=== PATIENT | female | born 1945 | race Caucasian/White ===

== ENCOUNTER 2018-05-10 12:16 | Inpatient (IN) ==
[2018-05-10] MEDS ORDERED: Ipratropium/Albuterol Neb 3 ML IH ONE (12:50)
[2018-05-10] MEDS ORDERED: methylPREDNISolone 125 MG/2 ML VIAL IVP ONE (12:50)
[2018-05-10 13:18] LABS: Basophils # 0.1 K/mcL (0.0-0.2); Basophils % 0.6 %; Eosinophils % 0.1 %; Hematocrit 33.6 % (35.3-44.9); Hemoglobin 10.9 g/dL (11.5-15.4); Immature Granulocytes % 0.3 % (0-4); Lymphocytes # 0.7 K/mcL (0.6-4.6); Lymphocytes % 9.4 %; Mean Corpuscular HGB Conc 32.4 g/dL (31.6-35.5); Mean Corpuscular Hemoglobin 28.8 pg (28.0-33.3); Mean Corpuscular Volume 88.9 fL (83.0-100.0); Mean Platelet Volume 10.2 fL (9.4-12.4); Monocytes # 0.6 K/mcL (0.0-1.3); Neutrophils # 6.5 K/mcL (1.6-8.9); Platelet Count 225 K/mcL (140-400); Red Blood Count 3.78 M/mcL (3.82-4.97); Segmented Neutrophils % 82.6 %
[2018-05-10 13:39] LABS: BUN/Creatinine Ratio 18 (6-26); Blood Urea Nitrogen 14 mg/dL (8-23); Calcium 7.3 mg/dL (8.6-10.3); Carbon Dioxide 20 mEq/L (23-29); Chloride 111 mEq/L (98-107); Glucose 87 mg/dL (70-105); Osmolality,Calculated 290 (280-300); Potassium 3.4 mEq/L (3.5-5.1); Sodium 140 mEq/L (136-145); Troponin I < 0.03 ng/mL (< 0.04); eGFR For Non-African Americans > 60 (> 60)
[2018-05-10 13:44] LABS: Bilirubin,Urine Negative (Negative); Blood,Urine Negative (Negative); Clarity,Urine Clear (Clear); Color,Urine Yellow (Yellow); Glucose,Urine (UA) Normal (Normal); Ketones,Urine Negative (Negative); Leukocyte Esterase,Urine Trace (Negative); Nitrite,Urine Negative (Negative); PH,Urine 6.5 pH Units (5.0-8.0); Protein,Urine Negative (Neg-Trace); Urobilinogen,Urine Normal (Normal)
[2018-05-10 13:46] LABS: Bacteria,Urine None Seen per hpf (None-Few); Hyaline Casts,Urine None Seen per lpf (None-Few); RBC,Urine 0-3 per hpf (0-3); Squamous Epithelial Cell,Urine Many per lpf (None-Few); WBC,Urine 0-3 per hpf (0-3)
--- NOTE | 2018-05-10 13:51 | Emergency Department Note ---
Disposition Clinical Impression: COPD exacerbation Atrial fibrillation Qualifiers: Atrial fibrillation type: unspecified Qualified Code(s): I48.91 - Unspecified atrial fibrillation Disposition: Admitted As Inpatient Condition: Fair Time of Disposition: 14:37 General Adult HPI - General Chief complaint: ED Arrhythmia/Palpitations Stated complaint: Abnormal EKG Time Seen by Provider: 05/10/18 12:28 Source: patient, family Mode of arrival: ambulatory Limitations: no limitations Nursing Notes Reviewed: Yes Vital Signs Reviewed: Yes - History of Present Illness HPI Narrative: Patient presents emergency room from home for evaluation of arrhythmia and shortness of breath. She called and was seen by her PCP and they are concerned about A. fib with RVR as well as COPD exacerbation. Patient denies any other symptoms or complaints. Onset (ago): day(s) Location: chest Radiation: non-radiation Pain Scale: 0 Consistency: constant Improves with: nothing Worsens with: movement Treatments Prior to Arrival: none - Related Data Home Medications Medication Instructions Recorded Confirmed Celecoxib [Celebrex] 200 mg PO DAILY 03/12/15 03/10/18 Furosemide [Lasix] 20 mg PO BID 03/12/15 03/10/18 Guaifenesin [Mucinex] 600 mg PO BID PRN 03/12/15 03/10/18 Lovastatin [Mevacor] 20 mg PO DAILY 03/12/15 03/10/18 Omeprazole [PriLOSEC] 20 mg PO DAILY 03/12/15 03/10/18 Oxygen 2 l NS HS 03/12/15 03/10/18 Sertraline [Zoloft] 100 mg PO DAILY 03/12/15 03/10/18 Albuterol Sulfate [Proair Hfa] 2 puff IH Q4HR PRN 02/13/17 03/10/18 Aspirin [Lo-Dose Aspirin EC] 81 mg PO DAILY 02/13/17 03/10/18 Diltiazem CD (24hr) [Cardizem CD] 120 mg PO DAILY 02/13/17 03/10/18 Tiotropium Br/Olodaterol HCl 2 puff IH BID 03/10/18 03/10/18 [Stiolto Respimat Inhal [place]] Previous Rx's Medication Instructions Recorded Budesonide/Formoterol 80/4.5 2 puff IH BID inhaler 03/15/18 [Symbicort 80/4.5] Warfarin [Coumadin] 2 mg PO 1800 #14 tablet 03/15/18 Potassium Chloride [K-Tab ER] 40 meq PO DAILY #10 tablet.er 05/03/18 Allergies Allergy/AdvReac Type Severity Reaction Status Date / Time acetaminophen AdvReac Vomiting Verified 02/13/17 11:20 [From Darvocet-N] propoxyphene AdvReac Vomiting Verified 02/13/17 11:20 [From Darvocet-N] All systems ED: reviewed and negative except as stated. Review of Systems: As Per HPI Constitutional: Denies: fever, chills ENT ED: Denies: ear pain Cardiovascular: Reports: palpitations, dyspnea on exertion, orthopnea. Denies: chest pain, edema Respiratory: Reports: dyspnea, wheezes. Denies: cough Gastrointestinal: Denies: abdominal pain, nausea, vomiting, diarrhea Genitourinary: Denies: urgency, dysuria, frequency Musculoskeletal: Denies: back pain, neck pain Neurological: Denies: headache Past Medical History - Past Medical History Attestation: Yes The following information was validated with the patient. Source: patient Medical history: Reports: aortic aneurysm, arthritis, cancer, COPD, hypertension Surgical history: Reports: appendectomy, breast surgery, cancer surgery, cataract, knee replacement, other Psychiatric history: Reports: depression BACK TENDER CYLINDER history: Reports: no BACK TENDER CYLINDER history - Social History Smoking Status: Former smoker Smokeless Tobacco Status: No Alcohol use: Reports: occasionally Drug use: Reports: none Physical Exam - General Limitations: no limitations General appearance: alert, in no apparent distress - Head Head exam: atraumatic, normocephalic, normal inspection - ENT ENT exam: normal exam, normal oropharynx, mucous membranes moist - Neck Neck exam: Present: normal inspection, full ROM, trachea midline. Absent: tenderness, lymphadenopathy - Chest Chest inspection: Present: normal inspection, symmetric chest wall rise. Absent: tenderness - Respiratory Respiratory exam: Present: respiratory distress, wheezes, accessory muscle use - Cardiovascular Cardiovascular exam: Present: normal rhythm, tachycardia - Abdominal Exam Abdominal exam: Present: soft, Non-Tender, normal bowel sounds. Absent: tenderness, distention, guarding, rebound, rigidity, Ingram's sign, Rovsing's sign, tenderness at McBurney's Point - Extremities Exam Extremities exam: Present: normal inspection, full ROM, normal capillary refill. Absent: tenderness - Back Exam Back exam: Present: normal inspection, full ROM. Absent: tenderness, CVA tenderness (R), CVA tenderness (L) - Neurological Exam Neurological exam: Present: alert, oriented X3, CN II-XII intact, normal gait - Skin Skin exam: Present: warm, dry, intact, normal color Course Course Narrative: patient seen and examined at the time of arrival. See history of present illness. Patient was recently diagnosed with atrial fibrillation. She is cur rently on Eliquis for anticoagulation. She is at this time denying chest pain but she has had persistently worsening shortness of breath. She typically uses 2 L of oxygen at night at home and is now to 4 L 24 hours a day. Patient has diffuse wheezing and decreased air movement throughout all lung [place]aul[place]. Her heart rate initially was between 120 and 140. The primary care provider felt the same way. Patient is denying fevers or chills. Denies any headache or vision change. She has had persistently worsening shortness of breath and no chest pain. Concern is noted for COPD exacerbation driving atrial fibrillation at this time. Patient has been taking all of her medications at home and attempting to use her breathing treatments. Patient will be given steroids and triple DuoNeb. To start with. EKG CBC chemistry troponin and BNP lactic acid will be collected and ordered. Patient will have symptomatic control provided and disposition determined. Clinical suspicion is that the patient will require admission for symptomatic control management. Otherwise she is stable. Will monitor closely and disposition will be determined - Reevaluation(s) Reevaluation #1: Patient is found to have a chronically elevated BNP. She does not show any acute fluid in the interstitial markings the lungs but does have scant bilateral pleural effusions. Breathing is much better after first dose of breathing treatments and she is diffusely wheezy now this time. Repeat dose of albuterol breathing treatments will be given. Her heart rate is been fluctuating between 92-105 bpm. Patient otherwise feels better. No other acute findings noted during this laboratory workup. Chronic anemia as well as BNP were discussed. Patient is otherwise clinically stable. The hospitalist was contacted for admission. Dr. Rios and I reviewed the case and there is no other concerns or issues at this time. She did agree with continuing to treat the bleeding related issues as opposed to treating the A. fib. Patient appears to be symptomatic atrial fibrillation secondary to COPD exacerbation. Patient does not show any clinical signs of infections antibiotics will not be started at this time. Patient is otherwise clinically stable. She will be monitored in emergency room until admission process is completed. Time: 14:13 Vital Signs Temperature 97.7 F 05/10/18 12:21 Pulse Rate 122 05/10/18 12:21 Respiratory Rate 22 05/10/18 12:21 Blood Pressure 109/75 05/10/18 12:21 O2 Sat by Pulse Oximetry 89 05/10/18 12:21 Temperature 97.7 F 05/10/18 12:21 Pulse Rate 122 05/10/18 12:21 Respiratory Rate 20 05/10/18 13:17 Blood Pressure 109/75 05/10/18 12:21 O2 Sat by Pulse Oximetry 92 05/10/18 13:17 Oxygen Delivery Oxygen Delivery Room Air Medical Decision Making - MDM Narrative Medical decision making narrative: COPD exacerbation, A. fib with RVR - Medical Records Medical records reviewed: Yes I reviewed the patient's medical records. - Lab Data Lab results reviewed: Yes I reviewed the patient's lab results. Result diagrams: 05/10/18 12:54 05/10/18 12:54 Lab Results 05/10/18 05/10/18 05/10/18 Range/Units 12:54 12:54 12:54 WBC 7.8 (4.3-11.1) K/mcL RBC 3.78 L (3.82-4.97) M/mcL Hgb 10.9 L (11.5-15.4) g/dL Hct 33.6 L (35.3-44.9) % MCV 88.9 (83.0-100.0) fL MCH 28.8 (28.0-33.3) pg MCHC 32.4 (31.6-35.5) g/dL RDW 15.0 H (11.5-14.5) % Plt Count 225 (140-400) K/mcL MPV 10.2 (9.4-12.4) fL Immature Gran % 0.3 (0-4) % Seg Neutrophils % 82.6 % Lymphocytes % 9.4 % Monocytes % 7.0 % Eosinophils % 0.1 % Basophils % 0.6 % Neutrophils # 6.5 (1.6-8.9) K/mcL Lymphocytes # 0.7 (0.6-4.6) K/mcL Monocytes # 0.6 (0.0-1.3) K/mcL Eosinophils # 0.0 (0.0-0.6) K/mcL Basophils # 0.1 (0.0-0.2) K/mcL Sodium 140 (136-145) mEq/L Potassium 3.4 L (3.5-5.1) mEq/L Chloride 111 H (98-107) mEq/L Carbon Dioxide 20 L (23-29) mEq/L BUN 14 (8-23) mg/dL Creatinine 0.79 (0.60-1.20) mg/dL Est GFR ( Amer) > 60 (> 60) Est GFR (Non-Af Amer) > 60 (> 60) BUN/Creatinine Ratio 18 (6-26) Glucose 87 (70-105) mg/dL Calculated Osmolality 290 (280-300) Calcium 7.3 L (8.6-10.3) mg/dL Troponin I < 0.03 (< 0.04) ng/mL B-Natriuretic Peptide 470 H (Less than 100) pg/mL Specimen Rejected 05/10/18 Range/Units 12:54 WBC (4.3-11.1) K/mcL RBC (3.82-4.97) M/mcL Hgb (11.5-15.4) g/dL Hct (35.3-44.9) % MCV (83.0-100.0) fL MCH (28.0-33.3) pg MCHC (31.6-35.5) g/dL RDW (11.5-14.5) % Plt Count (140-400) K/mcL MPV (9.4-12.4) fL Immature Gran % (0-4) % Seg Neutrophils % % Lymphocytes % % Monocytes % % Eosinophils % % Basophils % % Neutrophils # (1.6-8.9) K/mcL Lymphocytes # (0.6-4.6) K/mcL Monocytes # (0.0-1.3) K/mcL Eosinophils # (0.0-0.6) K/mcL Basophils # (0.0-0.2) K/mcL Sodium (136-145) mEq/L Potassium (3.5-5.1) mEq/L Chloride (98-107) mEq/L Carbon Dioxide (23-29) mEq/L BUN (8-23) mg/dL Creatinine (0.60-1.20) mg/dL Est GFR ( Amer) (> 60) Est GFR (Non-Af Amer) (> 60) BUN/Creatinine Ratio (6-26) Glucose (70-105) mg/dL Calculated Osmolality (280-300) Calcium (8.6-10.3) mg/dL Troponin I (< 0.04) ng/mL B-Natriuretic Peptide (Less than 100) pg/mL Specimen Rejected Hemolyzed - Radiology Data Radiology results reviewed: Yes I reviewed the patient's radiology results. Chest x-ray stable no acute signs of pneumonia or infection. Stable bilateral pleural effusions were noted - EKG Data EKG #1 EKG attestation: Yes I reviewed and interpreted this EKG. EKG results narrative: EKG collected. Atrial fibrillation with heart rate of 116. QRS duration of 92. QTC of 471. [place] appears to be normal. No acute signs of ST segment elevation or abnormality. Compared to previous EKG on 05/03/18 with similar rhythm.
[2018-05-10] MEDS ORDERED: Albuterol 2.5 MG/3 ML NEBULIZER IH ONE (14:05)
[2018-05-10] MEDS ORDERED: Ondansetron 4 MG/2 ML VIAL IVP PRN (14:14)
[2018-05-10] MEDS ORDERED: Naloxone 0.4 MG/ML INJ IVP PRN (14:14)
[2018-05-10 14:37] LABS: INR 2.2; Prothrombin Time 24.4 Seconds (9.4-12.1)
--- NOTE | 2018-05-10 14:38 | Internal Med History&Physical ---
Date of Encounter: 05/10/18 Time of Encounter: 14:10 Internal Medicine - H&P: HPI Chief complaint: Afib RVR, sent by PCP Admitted From: Home History of present illness: Ms. Alba is a 72 year old female with history of COPD on 2 L [facility] oxygen [facility], atrial fibrillation on Eliquis, who presented to the ED from her PCP office due to concern of COPD exacerbation and and A. fib with RVR. She states that she has been progressively dyspneic for the last week or so, associated with worsening cough and yellowish sputum production. Denies any fever/chills, chest pain, palpitation, orthopnea, or PND. No nausea/vomiting, diaphoresis, or sick contacts. Denies any abdominal pain, change in bowel habits, or dysuria. She was seen by her PCP today who noted that she was in A. fib with RVR without ventricular rate of 120 to 140s. In the ED, she was afebrile with heart rate of 122 and RR of 22. BP stable, saturating 92% on 2L O2. Workup showed normal white blood cell count, negative troponin 1, and creatinine of 0.79 which is at her baseline. Potassium was low at 3.4. Chest X-ray did not show any acute cardiopulmonary processes except for tiny bilateral pleural effusions. She was given bronchodilator in the ED with an improvement in her heart rate to 100 to 110s. Past Med Surg Social Fam HX - Past Medical History Attestation: Yes The following information was validated with the patient. Medical history: aortic aneurysm, arthritis, cancer, COPD, hypertension Additional medical history: Cancer left breast, home oxygen 2 lpm ([employer]) Psychiatric history: depression - Past Surgical History Surgical History: appendectomy, breast surgery, cancer surgery, cataract, knee replacement, other Additional surgical history: carpal tunnelx3. - Social History Smoking Status: Former smoker Smokeless Tobacco Status: No Alcohol use: occasionally Drug use: none - Family History Mother Living Status: Hx Family Cancer: Yes (Breast cancer) Father Living Status: Hx Family Respiratory Disorders: Yes (COPD) Hx Family Cancer: Yes (PROSTATE CANCER, BLACK LUNG) Internal Medicine - H&P: Meds Celecoxib [Celebrex] 200 mg PO DAILY 03/12/15 [History] Furosemide [Lasix] 20 mg PO BID 03/12/15 [History] Guaifenesin [Mucinex] 600 mg PO BID PRN 03/12/15 [History] Lovastatin [Mevacor] 20 mg PO DAILY 03/12/15 [History] Omeprazole [PriLOSEC] 20 mg PO DAILY 03/12/15 [History] Oxygen 2 l NS HS 03/12/15 [History] Sertraline [Zoloft] 100 mg PO DAILY 03/12/15 [History] Albuterol Sulfate [Proair Hfa] 2 puff IH Q4HR PRN 02/13/17 [History] Aspirin [Lo-Dose Aspirin EC] 81 mg PO DAILY 02/13/17 [History] Diltiazem CD (24hr) [Cardizem CD] 120 mg PO DAILY 02/13/17 [History] Tiotropium Br/Olodaterol HCl [Stiolto Respimat Inhal [employer] [place] [employer] [place]] 2 puff IH BID 03/10/18 [History] Budesonide/Formoterol 80/4.5 [Symbicort 80/4.5] 2 puff IH BID inhaler 03/15/18 [Rx] Warfarin [Coumadin] 2 mg PO 1800 #14 tablet 03/15/18 [Rx] Potassium Chloride [K-Tab ER] 40 meq PO DAILY #10 tablet.er 05/03/18 [Rx] Allergy/AdvReac Type Severity Reaction Status Date / Time acetaminophen AdvReac Vomiting Verified 02/13/17 11:20 [From Darvocet-N] propoxyphene AdvReac Vomiting Verified 02/13/17 11:20 [From Darvocet-N] All Systems PM: A 10-system review of systems was performed and is negative for pertinent findings except as documented above in the HPI. - Constitutional Vitals: Temp Pulse Resp BP Pulse Ox 97.7 F 122 20 109/75 92 05/10/18 12:21 05/10/18 12:21 05/10/18 13:17 05/10/18 12:21 05/10/18 13:17 Exam: General: Alert and oriented, mild respiratory distress but able to speak in full sentences HEENT:EOMI, pupils equal, round and reactive. Cardiovascular:Normal S1 & S2, No JVD. Tachycardic and irregular rhythm. Lungs: Equal and fair air entry bilaterally with diffuse wheezing Abdomen:Soft, non-tender, no rigidity. Extremities:No deformity or swelling Neurological:Normal cognition and motor skills. Non-focal Skin:Normal color, no rash, no lesions. Pulses:Carotid and radial pulses normal +2. Rest of the physical exam is non contributory Internal Med - H&P Results - Labs CBC & Chem 7: 05/10/18 12:54 05/10/18 12:54 Labs: Short CBC 05/10/18 Range/Units 12:54 WBC 7.8 (4.3-11.1) K/mcL Hgb 10.9 L (11.5-15.4) g/dL Hct 33.6 L (35.3-44.9) % Plt Count 225 (140-400) K/mcL Neutrophils # 6.5 (1.6-8.9) K/mcL BMP 05/10/18 12:54 Sodium 140 Potassium 3.4 L Chloride 111 H Carbon Dioxide 20 L BUN 14 Creatinine 0.79 Glucose 87 Calcium 7.3 L Cardiac Enzymes 05/10/18 Range/Units 12:54 Troponin I < 0.03 (< 0.04) ng/mL Urine 05/10/18 Range/Units 13:34 Urine Color Yellow (Yellow) Urine Clarity Clear (Clear) Urine pH 6.5 (5.0-8.0) pH Units Ur Specific [place] 1.010 (1.010-1.025) Urine Protein Negative (Neg-Trace) mg/dL Urine Glucose (UA) Normal (Normal) mg/dL - Impressions ITS Impressions Chest X-Ray 05/10/18 12:50 IMPRESSION: 1. Small bilateral pleural effusions. D/ / Evert Stevens MD / Evert Stevens MD Interpreting Provider: Evert Stevens MD - Assessment and Plan (1) COPD exacerbation Current Visit: Yes Status: Acute Assessment and plan: Appears that her A. fib with RVR was triggered by COPD exacerbation. Has been having difficulty in breathing, worsening cough, and increased sputum production for the last week states that she feels better after bronchodilator, HR also improved CXR negative for PNA, no fever/leukocytosis Was given IV Solu-Medrol in the ED, continue 40 mg twice a day scheduled bronchodilators, add macrolide for 5 days resume home inhalers once reconciled check respiratory viral panel (2) Atrial fibrillation with RVR Current Visit: Yes Status: Acute Assessment and plan: Likely secondary to the above, states that she is on Cardizem 360 mg QD and Eliquis 5mg BID at home. HR improved after bronchodilators, continue to tx COPD as above resume home meds once reconciled, PRN lopressor (3) Hypokalemia Current Visit: No Status: Acute Assessment and plan: 3.4 on presentation, oral supplement given in the ED will give another dose in view of afib with RVR to keep K>4 check Mg (4) Hypertension Current Visit: Yes Status: Chronic Assessment and plan: Resume home meds once reconciled Qualifiers: Hypertension type: essential hypertension Qualified Code(s): I10 - Essential (primary) hypertension (5) DVT prophylaxis Current Visit: Yes Status: Acute Assessment and plan: on Eliquis - Time Spent With Patient Total time spent is greater than 50% in coordination of care (as documented) at patient's floor/unit and/or counseling patient: 25 - 35 minutes
[2018-05-10] MEDS ORDERED: Albuterol 2.5 MG/3 ML NEBULIZER IH PRN (14:43)
[2018-05-10] MEDS: Ipratropium/Albuterol Neb 3 ML IH SCH ×2 (15:39→19:52)
[2018-05-10] MEDS: Azithromycin 500 MG in D5% in Water 250 ML IVPB SCH (17:22)
[2018-05-10] MEDS: *HR* Metoprolol 5 MG/5 ML VIAL IVP PRN (17:22)
[2018-05-10] MEDS: Apixaban 5 MG TABLET PO SCH (20:34)
[2018-05-10] MEDS: Furosemide 20 MG TABLET PO SCH (22:28)
[2018-05-11] MEDS: *HR* Metoprolol 5 MG/5 ML VIAL IVP PRN ×3 (00:07→17:23)
[2018-05-11] MEDS: Ipratropium/Albuterol Neb 3 ML IH SCH ×3 (00:13→07:20)
[2018-05-11] MEDS ORDERED: 0.9 % Sodium Chloride 250 ML ONE (01:02)
[2018-05-11 04:23] LABS: Hematocrit 30.9 % (35.3-44.9); Immature Granulocytes % 0.4 % (0-4); Lymphocytes # 0.3 K/mcL (0.6-4.6); Lymphocytes % 5.1 %; Mean Corpuscular HGB Conc 32.4 g/dL (31.6-35.5); Mean Corpuscular Hemoglobin 28.6 pg (28.0-33.3); Mean Corpuscular Volume 88.3 fL (83.0-100.0); Monocytes % 0.7 %; Neutrophils # 5.4 K/mcL (1.6-8.9); Platelet Count 196 K/mcL (140-400); Segmented Neutrophils % 93.8 %
[2018-05-11 04:34] LABS: INR 2.2; Prothrombin Time 24.3 Seconds (9.4-12.1)
[2018-05-11 04:39] LABS: BUN/Creatinine Ratio 17 (6-26); Blood Urea Nitrogen 15 mg/dL (8-23); Calcium 8.8 mg/dL (8.6-10.3); Carbon Dioxide 24 mEq/L (23-29); Chloride 102 mEq/L (98-107); Glucose 174 mg/dL (70-105); Magnesium 1.9 mg/dL (1.6-2.6); Osmolality,Calculated 287 (280-300); Potassium 3.9 mEq/L (3.5-5.1); Sodium 136 mEq/L (136-145); eGFR For Non-African Americans > 60 (> 60)
[2018-05-11] MEDS: Apixaban 5 MG TABLET PO SCH ×2 (08:13→21:41)
[2018-05-11] MEDS: MethylPREDNISolone 40 MG/ML VIAL IVP SCH ×2 (08:13→18:27)
--- NOTE | 2018-05-11 08:32 | Internal Med Progress Note ---
Hospitalist Progress Note - Encounter Date of Encounter: 05/11/18 Time of Encounter: 11:00 - Subjective Interval History: Patient with a history atrial fibrillation who presents with RVR with heart rate in the 120 to 140s. Cardiology with plans for potential cardioversion - Exam Vitals: Temp Pulse Resp BP Pulse Ox 98.1 F 133 17 113/76 95 05/11/18 06:36 05/11/18 07:10 05/11/18 06:36 05/11/18 07:10 05/11/18 06:36 Exam: Gen.: Nonacute distress, alert and oriented 3 ENT: Mucosal membranes moist Respiratory: Lungs are clear to auscultation bilaterally without any wheezing rhonchi or rales Cardiovascular: Irregular regular rhythm; no murmurs rubs or gallops Abdomen: Soft, nontender and nondistended with positive bowel sounds Extremities: No lower extremity edema Skin: Normal color - Assessment and Plan (1) Atrial fibrillation with RVR Current Visit: Yes Status: Acute Assessment and Plan: Patient with a history atrial fibrillation who presents with RVR with heart rate in the 120 to 140s. She is on Cardizem 360 mg QD and Eliquis 5mg BID at home. Cardiology with plans for potential cardioversion (2) COPD exacerbation Current Visit: Yes Status: Acute Assessment and Plan: CXR negative for PNA, no fever/leukocytosis Respiratory infectious panel pending Will continue scheduled nebs and IV Solu-Medrol (3) Hypokalemia Current Visit: No Status: Resolved Assessment and Plan: Resolved; continue to monitor with potassium supplementation as needed (4) Hypertension Current Visit: Yes Status: Chronic Assessment and Plan: Continue home medications DVT Prophylaxis: On Eliquis - Time Spent with Patient Total time spent is greater than 50% in coordination of care (as documented) at patient's floor/unit and/or counseling patient: Internal Medicine: Result - Labs CBC & Chem 7: 05/11/18 03:59 05/11/18 03:59 Labs: Short CBC 05/10/18 05/11/18 Range/Units 12:54 03:59 WBC 7.8 5.7 (4.3-11.1) K/mcL Hgb 10.9 L 10.0 L (11.5-15.4) g/dL Hct 33.6 L 30.9 L (35.3-44.9) % Plt Count 225 196 (140-400) K/mcL Neutrophils # 6.5 5.4 (1.6-8.9) K/mcL BMP 05/10/18 05/11/18 12:54 03:59 Sodium 140 136 Potassium 3.4 L 3.9 Chloride 111 H 102 Carbon Dioxide 20 L 24 BUN 14 15 Creatinine 0.79 0.88 Glucose 87 174 H Calcium 7.3 L 8.8 Cardiac Enzymes 05/10/18 Range/Units 12:54 Troponin I < 0.03 (< 0.04) ng/mL Urine 05/10/18 Range/Units 13:34 Urine Color Yellow (Yellow) Urine Clarity Clear (Clear) Urine pH 6.5 (5.0-8.0) pH Units Ur Specific [place] 1.010 (1.010-1.025) Urine Protein Negative (Neg-Trace) mg/dL Urine Glucose (UA) Normal (Normal) mg/dL - ABG Interpretation ABG results: PT/INR, D-dimer PT 24.3 Seconds (9.4-12.1) H 05/11/18 03:59 - Impressions Impressions Chest X-Ray 05/10/18 12:50 IMPRESSION: 1. Small bilateral pleural effusions. D/ / Evert Stevens MD / Evert Stevens MD Interpreting Provider: Evert Stevens MD Consult Discharge Plan - Plan Referrals: Susanna Xie, [employer] [Primary Care Provider] - (4) Hypertension Qualifiers: Hypertension type: essential hypertension Qualified Code(s): I10 - Essential (primary) hypertension
[2018-05-11] MEDS ORDERED: Celecoxib 100 MG CAPSULE PO SCH (09:00)
[2018-05-11] MEDS: Diltiazem CD (24hr) 180 MG CAPSULE PO SCH (09:33)
[2018-05-11] MEDS: Aspirin Enteric Coated 81 MG Tablet PO SCH (10:09)
--- NOTE | 2018-05-11 10:54 | Cardiology Consult Note ---
<Marisol Ochoa - Last Filed: 05/11/18 11:28> Date of Encounter: 05/11/18 Time of Encounter: 08:50 Assessment and Plan (1) Atrial fibrillation with RVR Current Visit: Yes Status: Acute Per cardiology: -Admitted with a.fib RVR, known history of a.fib. -On BB, CCB in outpatient setting. -Currently on CCB, cardizem drip. -Remains tachcycardic, average HR 134. -TTE 02/2018 with LVEF 65%, severe bi-atrial enlargement, mild TR, mild WV, mild PH, no wall motion abnormalities noted. -OF note also being treated for COPD exacerbation. -On eliquis for anticoagulation, reports no missed doses since initiation (04/05/18). -Will add back low dose BB. Continue cardizem drip. -Discussed and reviewed with , plan for DCCV in am. (2) CHF (congestive heart failure) Current Visit: No Status: Chronic Per cardiology: -Known history of diastolic CHF. -On po lasix at home. -Mildly volume overloaded on exam. -TTE as above. -Will give one time dose of IV lasix now. -Strict i/os, fluid restriction, daily weights. -CHF education reviewed. Qualifiers: Heart failure type: diastolic Heart failure chronicity: chronic Qualified Code(s): I50.32 - Chronic diastolic (congestive) heart failure (3) COPD exacerbation Current Visit: Yes Status: Acute Per cardiology: -Known COPD, being treated for COPD exacerbation. -Management per primary service. Discussion w patient/family: The assessment and plan as outlined above was discussed with the patient who expressed understanding and agreement. All questions were answered. Thank you for involving us in the care of your patient. Please call with any questions. Discussed and reviewed with History of Present Illness Consult date: 05/11/18 Requesting physician: Preston Vines Consult reason: a.fib RVR Chief complaint: weakness, shortness of breath History of present illness: Ms. Alba is a 72 year old female with a relevant past medical history of COPD, a.fib, GERD, AAA, vascular disease, depression, HLD, breast cancer s/p lumpectomy and radiation, who presented to [facility] as recommended by PCP for a.fib RVR. Patient reports since February, is unable to complete her normal tasks. States unable to do even light house work. Reports increased shortness of breath with exertion. Also reports extreme fatigue. Denies chest pain. Reports has left breast pain that has been intermittent since her lumpectomy. Past Med Surg Social Fam HX - Past Medical History Attestation: Yes The following information was validated with the patient. Source: patient, old records reviewed Medical history: aortic aneurysm, arthritis, atrial fibrillation, cancer, COPD, hypertension Additional medical history: Cancer left breast, home oxygen 2 lpm ([employer]) Psychiatric history: depression - Past Surgical History Surgical History: appendectomy, breast surgery, cancer surgery, cataract, knee replacement, other Additional surgical history: carpal tunnelx3. - Social History Smoking Status: Former smoker Smokeless Tobacco Status: No Alcohol use: occasionally Drug use: none - Family History Mother Living Status: Hx Family Cancer: Yes (Breast cancer) Father Living Status: Hx Family Respiratory Disorders: Yes (COPD) Hx Family Cancer: Yes (PROSTATE CANCER, BLACK LUNG) Medications and Allergies Celecoxib [Celebrex] 200 mg PO BID 03/12/15 [History] Furosemide [Lasix] 60 mg PO QAM 03/12/15 [History] Lovastatin [Mevacor] 20 mg PO DAILY 03/12/15 [History] Omeprazole [PriLOSEC] 20 mg PO DAILY 03/12/15 [History] Sertraline [Zoloft] 100 mg PO DAILY 03/12/15 [History] Albuterol Sulfate [Proair Hfa] 2 puff IH Q4HR PRN 02/13/17 [History] Aspirin [Lo-Dose Aspirin EC] 81 mg PO DAILY 02/13/17 [History] Diltiazem CD (24hr) [Cardizem CD] 360 mg PO DAILY 02/13/17 [History] Tiotropium Br/Olodaterol HCl [Stiolto Respimat Inhal [place]] 2 puff IH BID 03/10/18 [History] Furosemide [Lasix] 40 mg PO HS 05/10/18 [History] Metoprolol [Lopressor] 50 mg PO BID 05/10/18 [History] Cholecalciferol (D-3) [Vitamin D] 1,000 unit PO DAILY 05/11/18 [History] Fluticasone Propionate [Flovent Hfa] 1 puff IH BID 05/11/18 [History] Allergy/AdvReac Type Severity Reaction Status Date / Time acetaminophen AdvReac Vomiting Verified 02/13/17 11:20 [From Darvocet-N] propoxyphene AdvReac Vomiting Verified 02/13/17 11:20 [From Darvocet-N] All Systems Review: The remainder of the systems were reviewed and are negative - Constitutional Constitutional: fatigue, weakness - Cardiovascular Cardiovascular: dyspnea on exertion, rapid heart rate Physical Examination Vital Signs, Last 4 Hours Pulse Resp BP Pulse Ox 05/11/18 07:20 18 95 05/11/18 07:10 133 113/76 General: Conversant, No Apparent Distress HEENT: Atraumatic, Normocephaly, Mucus Membranes Moist Neck: No JVD, Normal carotid pulses Cardiac: Normal S1 and S2, No Murmur, Other (Irregularly irregular, tachycardic. ) Lungs: Normal Breath Sounds, No Wheeze, Rales, Rhonchi Neuro: Alert and responsive, No focal deficits noted Abdomen: Soft, Non-Tender Skin: No rashes noted on visualized skin Musculoskeletal: No Chest Wall Tenderness Extremities: No Clubbing, No Cyanosis, Normal Pulses, Other (Moderate bilateral lower extremity edema noted, non-pitting. ) Results 05/11/18 03:59 05/11/18 03:59 Lab Results Impressions Active Medications Apixaban (Eliquis) 5 mg PO BID LESLYE Stop: 11/09/18 21:01 Last Admin: 05/11/18 08:13 Dose: 5 mg Aspirin (Aspirin Ec) 81 mg PO DAILY LESLYE Stop: 11/10/18 09:01 Last Admin: 05/11/18 10:09 Dose: 81 mg Celecoxib (Celebrex) 200 mg PO BID LESLYE Stop: 11/10/18 09:01 Last Admin: 05/11/18 10:11 Dose: Not Given Diltiazem HCl (Cardizem Cd) 360 mg PO DAILY LESLYE Stop: 11/10/18 09:01 Last Admin: 05/11/18 09:33 Dose: Not Given Furosemide (Lasix) 40 mg PO HS LESLYE Stop: 11/09/18 21:16 Last Admin: 05/10/18 22:28 Dose: 40 mg Azithromycin 500 mg/ Dextrose 250 mls @ 252 mls/hr IVPB Q24H LESLYE Stop: 11/09/18 15:01 Last Infusion: 05/10/18 18:30 Dose: Infused Diltiazem HCl 50 mg/ Sodium (Chloride) 50 mls @ 5 mls/hr IVC .Q10H LESLYE; Protocol Stop: 11/09/18 18:46 Last Admin: 05/11/18 09:32 Dose: 20 mg/hr, 20 mls/hr Ipratropium Fonda (Atrovent Neb) 0.5 mg IH [id number] PRN PRN Reason: Dyspnea Stop: 05/16/18 10:20 Lovastatin (Mevacor) 20 mg PO QPM LESLYE Stop: 11/10/18 18:01 Methylprednisolone (Solu-Medrol) 40 mg IVP Q12HR LESLYE Stop: 11/10/18 08:01 Last Admin: 05/11/18 08:13 Dose: 40 mg Metoprolol Tartrate (Lopressor) 2.5 mg IVP Q6HR PRN PRN Reason: Tachyarrhythmias Stop: 11/09/18 14:45 Last Admin: 05/11/18 10:24 Dose: 2.5 mg Metoprolol Tartrate (Lopressor) 25 mg PO BID LESLYE Stop: 11/10/18 10:31 Naloxone HCl (Narcan) 0.4 mg IVP Q2M PRN PRN Reason: SEE COMMENTS Stop: 11/09/18 14:15 Omeprazole (Prilosec) 20 mg PO DAILY [facility]; Protocol Stop: 11/10/18 09:01 Last Admin: 05/11/18 10:10 Dose: 20 mg Ondansetron HCl (Zofran) 4 mg IVP Q8HR PRN PRN Reason: Nausea And Vomiting Stop: 11/09/18 14:15 Sertraline HCl (Zoloft) 100 mg PO DAILY [facility] Stop: 11/10/18 09:01 Last Admin: 05/11/18 10:09 Dose: 100 mg Chest X-Ray 05/10/18 12:50 IMPRESSION: 1. Small bilateral pleural effusions. D/ / Evert Stevens MD / Evert Stevens MD Interpreting Provider: Evert Stevnes MD Laboratory Tests 05/10/18 05/10/18 05/11/18 12:54 12:54 03:59 Hgb 10.0 L Potassium Creatinine Magnesium Troponin I < 0.03 B-Natriuretic Peptide 470 H 05/11/18 03:59 Hgb Potassium 3.9 Creatinine 0.88 Magnesium 1.9 Troponin I B-Natriuretic Peptide - Imaging and Cardiology Chest Xray: report reviewed Echo: report reviewed - EKG Interpretation EKG results cardiology: personally reviewed (ECG with a.fib RVR, HR 116.), other (Telemetry reviewed with average HR previous 12 hours noted to be 134, a.fib RVR. PVCs noted.) Consult Discharge Plan - Plan Referrals: Susanna Xie, INDUSTRIAL AERIAL INSTALLER [Primary Care Provider] - <Dante Milner - Last Filed: 05/12/18 09:08> Date of Encounter: 05/12/18 - Attending Attestation I have personally performed a face to face evaluation on this patient. I have reviewed and agree with the documented findings and care plan as documented by the INDUSTRIAL AERIAL INSTALLER. History and Exam by me shows: 72-year-old pleasant female admitted for A. fib with RVR, COPD exacerbation. She has been refractory to multiple rate control medications as outpatient. She is on Eliquis 5 mg twice a day for the past 1 month and denies missing any doses. Echocardiogram shows preserved ejection fraction with biatrial enlarg ement. Recommend cardioversion today. Continue Cardizem. Continue Eliquis 5 mg twice a day. Continue Lasix for chronic diastolic heart failure. Avoid B agonists. Recommend pulmonary consultation for alternative bronchodilators. Thanks, Dante Milner MD [facility] Assessment and Plan Discussion w patient/family: The assessment and plan as outlined above was discussed with the patient and/or family members who expressed understanding and agreement. All questions were answered. Thank you for involving us in the care of your patient. Please call with any questions. History of Present Illness History of present illness: Ms. Alba is a 72 year old female All Systems Review: The remainder of the systems were reviewed and are negative Physical Examination Vital Signs, Last 4 Hours Temp Pulse Resp BP Pulse Ox 05/12/18 06:55 98.0 F 103 14 110/62 93 Results 05/11/18 03:59 05/11/18 03:59
[2018-05-11] MEDS ORDERED: Furosemide 40 MG/4 ML VIAL IVP ONE (11:29)
[2018-05-11] MEDS ORDERED: Acetaminophen 325 MG TABLET PO PRN (11:37)
--- NOTE | 2018-05-11 16:11 | Electrocardiograph Report ---
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
[2018-05-11] MEDS: Azithromycin 500 MG in D5% in Water 250 ML IVPB SCH (16:37)
[2018-05-11 16:47] LABS: Adenovirus Not Detected (Not Detect); Bordetella Pertussis Not Detected (Not Detect); Chlamydophila pneumoniae Not Detected (Not Detect); Coronavirus 229E Not Detected (Not Detect); Coronavirus HKU1 Not Detected (Not Detect); Coronavirus NL63 Not Detected (Not Detect); Coronavirus OC43 Not Detected (Not Detect); Human Metapneumovirus Not Detected (Not Detect); Human Rhinovirus/Enterovirus Not Detected (Not Detect); Influenza A Subtype 2009 H1 Not Detected (Not Detect); Influenza A Untypeable Not Detected (Not Detect); Influenza B Not Detected (Not Detect); Mycoplasma pneumoniae Not Detected (Not Detect); Parainfluenza Virus 1 Not Detected (Not Detect); Parainfluenza Virus 2 Not Detected (Not Detect); Parainfluenza Virus 3 Not Detected (Not Detect); Parainfluenza Virus 4 Not Detected (Not Detect); Respiratory Syncytial Virus Not Detected (Not Detect)
[2018-05-11] MEDS: Ipratropium Neb 0.5 MG NEBULIZER IH PRN (18:17)
[2018-05-11] MEDS: Furosemide 20 MG TABLET PO SCH (21:41)
[2018-05-12] MEDS: Ipratropium Neb 0.5 MG NEBULIZER IH PRN ×2 (02:36→09:38)
[2018-05-12] MEDS: MethylPREDNISolone 40 MG/ML VIAL IVP SCH ×2 (05:25→17:05)
[2018-05-12] MEDS: Apixaban 5 MG TABLET PO SCH ×2 (08:35→20:22)
[2018-05-12] MEDS: Aspirin Enteric Coated 81 MG Tablet PO SCH (08:35)
[2018-05-12] MEDS: Diltiazem CD (24hr) 180 MG CAPSULE PO SCH (09:49)
[2018-05-12 09:52] LABS: Basophils % 0.1 %; Hematocrit 30.8 % (35.3-44.9); Hemoglobin 10.3 g/dL (11.5-15.4); Immature Granulocytes % 0.6 % (0-4); Lymphocytes # 0.5 K/mcL (0.6-4.6); Lymphocytes % 4.1 %; Mean Corpuscular HGB Conc 33.4 g/dL (31.6-35.5); Mean Corpuscular Volume 86.8 fL (83.0-100.0); Monocytes # 0.2 K/mcL (0.0-1.3); Monocytes % 1.6 %; Neutrophils # 11.9 K/mcL (1.6-8.9); Platelet Count 231 K/mcL (140-400); Red Blood Count 3.55 M/mcL (3.82-4.97); Red Cell Distribution Width 15.4 % (11.5-14.5); Segmented Neutrophils % 93.6 %
[2018-05-12 10:12] LABS: BUN/Creatinine Ratio 26 (6-26); Blood Urea Nitrogen 25 mg/dL (8-23); Calcium 8.9 mg/dL (8.6-10.3); Carbon Dioxide 24 mEq/L (23-29); Chloride 99 mEq/L (98-107); Glucose 147 mg/dL (70-105); Osmolality,Calculated 287 (280-300); Potassium 3.9 mEq/L (3.5-5.1); Sodium 135 mEq/L (136-145); eGFR For Non-African Americans 57 (> 60)
[2018-05-12] MEDS ORDERED: Lidocaine Viscous Oral Soln 15 ML SOLUTION MM PRN (10:17)
[2018-05-12] MEDS ORDERED: 0.9 % Sodium Chloride 500 ML IVC ONE (10:18)
[2018-05-12] MEDS ORDERED: Tetracaine/Benzocaine/Butamben 1 SPRAY AEROSOL MM ONE (10:18)
--- NOTE | 2018-05-12 10:22 | Event Note ---
Date of Encounter: 05/12/18 Time of Encounter: 08:00 - Cardiology Event Note PLan for ALYSSA guided DCCV today. Risks versus benefits of ALYSSA/DCCV explained to patient and family, who state understanding. Patient agreeable to proceed. Discussed and reviewed with . Further recommendations pending ALYSSA/DCCV.
[2018-05-12] MEDS: *HR* Midazolam HCl 5 MG/5 ML VIAL IVP PRN ×2 (11:25→11:49)
[2018-05-12] MEDS: *HR* FentaNYL (PF) 100 MCG/2 ML VIAL IVP PRN ×2 (11:25→11:49)
--- NOTE | 2018-05-12 14:34 | Event Note ---
Date of Encounter: 05/12/18 Time of Encounter: 14:32 - Cardiology Event Note Patient is s/p ALYSSA/DCCV. Currently SR, HRs 60-70s. Discussed and reviewed with , will decrease cardizem CD to 120mg daily. On lopressor 25mg BID. Continue eliquis for anticoagulation. Cardiology will sign off, will arrange outpatient follow up.
[2018-05-12] MEDS: Ipratropium/Albuterol Neb 3 ML IH SCH ×3 (15:24→23:22)
[2018-05-12] MEDS: Azithromycin 500 MG in D5% in Water 250 ML IVPB SCH (15:29)
--- NOTE | 2018-05-12 19:50 | Internal Med Progress Note ---
Hospitalist Progress Note - Encounter Date of Encounter: 05/12/18 Time of Encounter: 11:00 - Subjective Interval History: Recent went today for DCCV for successful and patient now and regular rhythm and Cardizem drip weaned off. Patient still with diffuse expiratory wheezes for COPD exacerbation therefore we will continue IV Solu-Medrol in addition to starting scheduled DuoNeb's. - Exam Vitals: Temp Pulse Resp BP Pulse Ox 98.4 F 73 18 116/85 94 05/12/18 19:30 05/12/18 19:30 05/12/18 19:30 05/12/18 19:30 05/12/18 19:30 Exam: Gen.: Nonacute distress, alert and oriented 3 ENT: Mucosal membranes moist Respiratory: Bilateral expiratory wheezes Cardiovascular: Irregular regular rhythm; no murmurs rubs or gallops Abdomen: Soft, nontender and nondistended with positive bowel sounds Extremities: No lower extremity edema Skin: Normal color - Assessment and Plan (1) Atrial fibrillation with RVR Current Visit: Yes Status: Acute Assessment and Plan: Patient is s/p ALYSSA/DCCV. Currently SR, HRs 60-70s. Recommendations to decrease oral dose of Cardizem CD to 120 mg daily and continue Lopressor 25 mg twice daily She will also continue Eliquis for oral anticoagulation follow-up with cardiology as an outpatient. (2) COPD exacerbation Current Visit: Yes Status: Acute Assessment and Plan: Patient still with diffuse expiratory wheezes for COPD exacerbation therefore we will continue IV Solu-Medrol in addition to starting scheduled DuoNeb's. (3) Hypokalemia Current Visit: No Status: Inactive Assessment and Plan: Resolved; continue to monitor with potassium supplementation as needed (4) Hypertension Current Visit: Yes Status: Chronic Assessment and Plan: Continue home medications DVT Prophylaxis: On Eliquis - Time Spent with Patient Total time spent is greater than 50% in coordination of care (as documented) at patient's floor/unit and/or counseling patient: Internal Medicine: Result - Labs CBC & Chem 7: 05/12/18 09:24 05/12/18 09:24 Labs: Short CBC 05/12/18 Range/Units 09:24 WBC 12.7 H D (4.3-11.1) K/mcL Hgb 10.3 L (11.5-15.4) g/dL Hct 30.8 L (35.3-44.9) % Plt Count 231 (140-400) K/mcL Neutrophils # 11.9 H (1.6-8.9) K/mcL BMP 05/12/18 09:24 Sodium 135 L Potassium 3.9 Chloride 99 Carbon Dioxide 24 BUN 25 H Creatinine 0.96 Glucose 147 H Calcium 8.9 - ABG Interpretation ABG results: PT/INR, D-dimer PT 24.3 Seconds (9.4-12.1) H 05/11/18 03:59 - Impressions Impressions Transesophageal w/Cardioversion 05/12/18 09:18 Impressions: No thrombus in LA or HOPE. Successful synchronized direct current cardioversion of atrial fibrillation. LVEF 50% Low normal RV systolic function. Moderately dilated LA, severely dilated RA. Mild tricuspid regurgitation. No pulmonary hypertension. Mil ascending aorta dilatation. Left Ventricular Wall Motion: Transesophageal Echo Findings All wall segments showed normal motion. Medication Given: Time Medication Dose Units Route 11:25 Versed 2 mg IV 11:25 Fentanyl 50 mcg IV 11:49 Versed 2 mg IV 11:49 Fentanyl 50 mcg IV Contrast Type Amount Agitated saline 10 Findings: Study Quality * Technically adequate exam. ECG Findings * Atrial fib RVR Left Ventricle * LVEF 50% * Normal size and low normal systolic function. Right Ventricle * The right ventricle was normal in size. * Low normal global systolic function. Left Atrium * Moderately dilated. * No thrombus present. * No thrombus is visualized in the LA appendage. * The LA appendage flow velocity is reduced. Right Atrium * RA is Severely dilated. Interatrial Septum * No evidence of inter-atrial shunting noted with saline contrast. Aortic Valve * Normal structure and function. Mitral Valve * Normal structure and function * No mitral stenosis. * Trace/trivial mitral regurgitation. Tricuspid Valve * Normal structure. * mild tricuspid regurgitation. * No pulmonary hypertension. Pulmonic Valve * Normal structure. * trivial pulmonic regurgitation. Aorta * Ascending aorta is dilated, mild, 3.7 cm. Pericardium * No pericardial effusion. Pulmonary Artery * Normal pulmonary artery. Pulmonary Veins * Normal pulmonary veins. Procedure Summary: After explaining the risks, benefits, and alternatives of the procedure to the patient in detail and answering all questions to satisfaction, an informed consent was obtained in writing. The patient was NPO for the six hours prior to the procedure. The patient denied dysphagia, odynophagia, and loose teeth. The patient was monitored with periodic automated blood pressures and continuous pulse oximetry and telemetry. Continuous oxygen was administered by ME. The patient was placed in the full upright position and the posterior oropharynx was anesthetized as above and complete suppression of the gag reflex was obtained. The patient was then placed in the left lateral decubitus position, the neck was flexed, and a bite block was placed in the patient's mouth. IV sedation was administered. Once adequate sedation was achieved, a well-lubricated anteflexed multipoint intraesophageal echocardiographic probe was inserted into the midline posterior oropharynx. Gentle pressure was applied as the patient swallowed and the esophagus was intubated without difficulty. The scope was advanced to the mid esophagus without encountering resistance. Images were obtained from the mid and upper esophagus. Images from the gastric globe were obtained. The intra-atrial septum was assessed by color-flow Doppler and agitated saline. The scope was then rotated approximately 180 degrees and withdrawn, visualizing the length of the aorta. The scope was then slowly withdrawn as the patient was continually suctioned. The patient tolerated the procedure well. Following informed consent , the patient was sedated with fentanyl and versed. After adequate sedation was achieved, cardioversion in the AP approach was successful using 200 Joules of biphasic energy. Sinus rhythm was restored after 1 attempt(s), sinus bradycardia with PACs. The patient was monitored for the standard 30 minutes post procedure. Complications: None History: Hypertension Hypercholesteremia Years 44 Packs 1.5 Congestive Heart Failure Previous Echo 03/10/2018 BP 113 / 74 Updated by Joesph Herrera MD on 05/12/2018 12:48:01 PM electronically signed on 05/12/2018 12:51:42 PM with status of Final Wall Motion Menard: 1=Normal, 2=Hypokinesis, 3=Akinesis, 4=Dyskinesis, 5=Aneurysmal, 6=Hyperkinetic, X=Not Visualized (Blank)=Missing Wall MotionIndex ALYSSA Total of all scored beaulieu 17 Index Divided by ---- = 1 Total number of beaulieu scored 17 ADDENDUM: 05/12/18 7718 Impressions: No thrombus in LA or HOPE. Successful synchronized direct current cardioversion of atrial fibrillation. LVEF 50% Low normal RV systolic function. Moderately dilated LA, severely dilated RA. Mild tricuspid regurgitation. No pulmonary hypertension. Mild ascending aorta dilatation. Left Ventricular Wall Motion: Transesophageal Echo Findings All wall segments showed normal motion. Medication Given: Time Medication Dose Units Route 11:25 Versed 2 mg IV 11:25 Fentanyl 50 mcg IV 11:49 Versed 2 mg IV 11:49 Fentanyl 50 mcg IV Contrast Type Amount Agitated saline 10 Findings: Study Quality * Technically adequate exam. ECG Findings * Atrial fib RVR Left Ventricle * LVEF 50% * Normal size and low normal systolic function. Right Ventricle * Low normal global systolic function. * The right ventricle was normal in size. Left Atrium * Moderately dilated. * No thrombus present. * No thrombus is visualized in the LA appendage. * The LA appendage flow velocity is reduced. Right Atrium * RA is Severely dilated. Interatrial Septum * No evidence of inter-atrial shunting noted with saline contrast. Aortic Valve * Normal structure and function. Mitral Valve * Normal structure and function * No mitral stenosis. * Trace/trivial mitral regurgitation. Tricuspid Valve * Normal structure. * mild tricuspid regurgitation. * No pulmonary hypertension. Pulmonic Valve * Normal structure. * trivial pulmonic regurgitation. Aorta * Ascending aorta is dilated, mild, 3.7 cm. * There is scattered layerered plaques in the descending and transverse aorta which measures <[id number]. Pericardium * No pericardial effusion. Pulmonary Artery * Normal pulmonary artery. Pulmonary Veins * Normal pulmonary veins. Procedure Summary: After explaining the risks, benefits, and alternatives of the procedure to the patient in detail and answering all questions to satisfaction, an informed consent was obtained in writing. The patient was NPO for the six hours prior to the procedure. The patient denied dysphagia, odynophagia, and loose teeth. The patient was monitored with periodic automated blood pressures and continuous pulse oximetry and telemetry. Continuous oxygen was administered by ME. The patient was placed in the full upright position and the posterior oropharynx was anesthetized as above and complete suppression of the gag reflex was obtained. The patient was then placed in the left lateral decubitus position, the neck was flexed, and a bite block was placed in the patient's mouth. IV sedation was administered. Once adequate sedation was achieved, a well-lubricated anteflexed multipoint intraesophageal echocardiographic probe was inserted into the midline posterior oropharynx. Gentle pressure was applied as the patient swallowed and the esophagus was intubated without difficulty. The scope was advanced to the mid esophagus without encountering resistance. Images were obtained from the mid and upper esophagus. Images from the gastric globe were obtained. The intra-atrial septum was assessed by color-flow Doppler and agitated saline. The scope was then rotated approximately 180 degrees and withdrawn, visualizing the length of the aorta. The scope was then slowly withdrawn as the patient was continually suctioned. The patient tolerated the procedure well. Following informed consent , the patient was sedated with fentanyl and versed. After adequate sedation was achieved, cardioversion in the AP approach was successful using 200 Joules of biphasic energy. Sinus rhythm was restored after 1 attempt(s), sinus bradycardia with PACs. The patient was monitored for the standard 30 minutes post procedure. Complications: None History: Hypertension Hypercholesteremia Years 44 Packs 1.5 Congestive Heart Failure Previous Echo 03/10/2018 BP 113 / 74 Updated by Joesph Herrera MD on 05/12/2018 3:57:38 PM electronically signed on 05/12/2018 4:00:06 PM with status of Final Wall Motion Menard: 1=Normal, 2=Hypokinesis, 3=Akinesis, 4=Dyskinesis, 5=Aneurysmal, 6=Hyperkinetic, X=Not Visualized (Blank)=Missing Wall MotionIndex ALYSSA Total of all scored beaulieu 17 Index Divided by ---- = 1 Total number of beaulieu scored 17 Consult Discharge Plan - Plan Referrals: Susanna Xie, STAGE SETTING PAINTER APPRENTICE [Primary Care Provider] - (4) Hypertension Qualifiers: Hypertension type: essential hypertension Qualified Code(s): I10 - Essential (primary) hypertension
[2018-05-12] MEDS: Furosemide 20 MG TABLET PO SCH (20:23)
[2018-05-13] MEDS: Ipratropium/Albuterol Neb 3 ML IH SCH ×2 (03:52→07:12)
[2018-05-13] MEDS: MethylPREDNISolone 40 MG/ML VIAL IVP SCH (04:54)
[2018-05-13] MEDS: Aspirin Enteric Coated 81 MG Tablet PO SCH (08:25)
[2018-05-13] MEDS: Apixaban 5 MG TABLET PO SCH (08:25)
[2018-05-13] MEDS ORDERED: Diltiazem CD (24hr) 120 MG CAPSULE PO SCH (09:00)
[2018-05-13] MEDS ORDERED: Levalbuterol Neb 0.63 MG/3 ML ONE (11:01)
[2018-05-13] MEDS: Levalbuterol Neb 0.63 MG/3 ML IH SCH ×2 (11:28→15:40)
--- NOTE | 2018-05-13 15:10 | Electrocardiograph Report ---
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
--- NOTE | 2018-05-13 15:11 | Electrocardiograph Report ---
[address] [address] Test Date: 2018-05-12 Pat Name: Asiya Alba Department: 101 Room: 2N1 Gender: F Wheel Inspector: SUSIE : 1945 Requested By: Joesph Herrera Order Number: [id number] Reading MD: Alla Jimenez Measurements Intervals [place] Rate: 58 P: 30 NH: 187 QRS: 14 QRSD: 88 T: 19 QT: 421 QTc: 417 Interpretive Statements SINUS BRADYCARDIA LOW QRS VOLTAGE IN EXTREMITY LEADS Electronically Signed On 05-13-2018 15:09:23 EST by Alla Jimenez
[2018-05-13 16:15] VITALS: BP 105/67
--- NOTE | 2018-05-13 16:51 | Discharge Summary ---
Date of Encounter: 05/13/18 Time of Encounter: 11:00 - Discharge Diagnosis (1) Atrial fibrillation with RVR Priority: Primary Status: Acute (2) COPD exacerbation Priority: Primary Status: Acute (3) Hypokalemia Priority: Secondary Status: Inactive (4) Hypertension Priority: Secondary Status: Chronic Qualifiers: Hypertension type: essential hypertension Qualified Code(s): I10 - Essential (primary) hypertension Hospital course: Patient is a 72-year-old female with past medical history significant for COPD on 2 L of oxygen at night, atrial fibrillation on Eliquis, who presented to the ED from her PCP office due to concern of COPD exacerbation and and A. fib with RVR. She was seen by her PCP today who noted that she was in A. fib with RVR without ventricular rate of 120 to 140s. In the ED, she was afebrile with heart rate of 122 and RR of 22. BP stable, saturating 92% on 2L O2. Workup showed normal white blood cell count, negative troponin 1, and creatinine of 0.79 which is at her baseline. Potassium was low at 3.4. Chest X-ray did not show any acute cardiopulmonary processes except for tiny bilateral pleural effusions. She was given bronchodilator in the ED with an improvement in her heart rate to 100 to 110s. During patients hospital stay cardiology was consulted with recommendations for ALYSSA/DC CD and patient converted to normal sinus rhythm. Patient was also treated for COPD exacerbation with IV steroids and scheduled DuoNebs. Patient will be discharged home to follow-up with cardiology and primary care provider. - Time Spent with Patient Total time spent providing and/or coordinating discharge services: Time spent: Less than 30 minutes - Discharge Medications Prescriptions: New Apixaban [Eliquis] 5 mg PO BID #60 tablet Azithromycin [Zithromax] 500 mg PO QPM #10 tablet Diltiazem CD (24hr) [Cardizem CD] 120 mg PO DAILY #30 cap.er.24h Metoprolol [Lopressor] 25 mg PO BID #60 tablet predniSONE [PredniSONE] 40 mg PO DAILY #10 tablet Continue Omeprazole [PriLOSEC] 20 mg PO DAILY Lovastatin [Mevacor] 20 mg PO DAILY Furosemide [Lasix] 60 mg PO QAM Sertraline [Zoloft] 100 mg PO DAILY Celecoxib [Celebrex] 200 mg PO BID Tiotropium Br/Olodaterol HCl [Stiolto Respimat Inhal [place]] 2 puff IH BID Furosemide [Lasix] 40 mg PO HS Cholecalciferol (D-3) [Vitamin D] 1,000 unit PO DAILY Fluticasone Propionate [Flovent Hfa] 1 puff IH BID Aspirin [Lo-Dose Aspirin EC] 81 mg PO DAILY Albuterol Sulfate [Proair Hfa] 2 puff IH Q4HR PRN PRN Reason: Shortness Of Breath Discontinued Metoprolol [Lopressor] 50 mg PO BID Diltiazem CD (24hr) [Cardizem CD] 360 mg PO DAILY Home Medications: Celecoxib [Celebrex] 200 mg PO BID 03/12/15 [History] Furosemide [Lasix] 60 mg PO QAM 03/12/15 [History] Lovastatin [Mevacor] 20 mg PO DAILY 03/12/15 [History] Omeprazole [PriLOSEC] 20 mg PO DAILY 03/12/15 [History] Sertraline [Zoloft] 100 mg PO DAILY 03/12/15 [History] Albuterol Sulfate [Proair Hfa] 2 puff IH Q4HR PRN 02/13/17 [History] Aspirin [Lo-Dose Aspirin EC] 81 mg PO DAILY 02/13/17 [History] Tiotropium Br/Olodaterol HCl [Stiolto Respimat Inhal [place]] 2 puff IH BID 03/10/18 [History] Furosemide [Lasix] 40 mg PO HS 05/10/18 [History] Cholecalciferol (D-3) [Vitamin D] 1,000 unit PO DAILY 05/11/18 [History] Fluticasone Propionate [Flovent Hfa] 1 puff IH BID 05/11/18 [History] Apixaban [Eliquis] 5 mg PO BID #60 tablet 05/13/18 [Rx] Azithromycin [Zithromax] 500 mg PO QPM #10 tablet 05/13/18 [Rx] Diltiazem CD (24hr) [Cardizem CD] 120 mg PO DAILY #30 cap.er.24h 05/13/18 [Rx] Metoprolol [Lopressor] 25 mg PO BID #60 tablet 05/13/18 [Rx] predniSONE [PredniSONE] 40 mg PO DAILY #10 tablet 05/13/18 [Rx] Allergies/Adverse Reactions: Allergy/AdvReac Type Severity Reaction Status Date / Time acetaminophen AdvReac Vomiting Verified 02/13/17 11:20 [From Darvocet-N] propoxyphene AdvReac Vomiting Verified 02/13/17 11:20 [From Darvocet-N] Date of admission: 05/11/18 18:52 Primary care physician: Susanna Xie CNP Consults: 05/11/18 08:04 Consult to Cardiology [CONS] Routine Comment: Consulting Provider: Cardiology Tish Reason for Consult: pt came in with a fib with rvr on cardizem gtt rate remains 130-140 gtt rate at 20mcg. Time Notified: 08:05 Call Completed: Yes - Constitutional Vitals: Temp Pulse Resp BP Pulse Ox 97.9 F 95 17 105/67 92 05/13/18 07:30 05/13/18 16:12 05/13/18 16:12 05/13/18 16:12 05/13/18 15:42 Exam: Gen.: Nonacute distress, alert and oriented 3 Skin: Normal color - Patient Status Disposition: Home, Self-Care Condition: Fair - Discharge Instructions Instructions: Metoprolol (By mouth), Diltiazem (By mouth), Prednisone (By mouth), Atrial Fibrillation (DC), Cardioversion (DC), Cardioversion (GEN), Chronic Obstructive Pulmonary Disease (DC) Follow Up With: Susanna Xie CNP [Primary Care Provider] - 05/18/18 2:00 pm
[2018-05-13] MEDS ORDERED: Azithromycin 250 MG TABLET PO SCH (18:00)
== END 2018-05-13 18:30 | disposition home or self-care (01) | DRG 191 ==
LOC: 2NENU 12:16 → EMEROOARM 12:16 → SUATTDRO 14:25 → 2NENU 16:26
PROVIDERS: ADMIT Internal Medicine; ATTEND Hospitalist